=== PATIENT | male | born 1960 ===

== ENCOUNTER → 2018-01-09 | Outpatient (CLI) | payer BC, MEDICARE | LOC: WOUNDCARE 12:25 | PROVIDERS: ATTEND Surgery | DX: L89.321 Pressure ulcer of left buttock, stage 1 (principal); J44.9 Chronic obstructive pulmonary disease, unspecified; T65.222A Toxic effect of tobacco cigarettes, intentional self-harm, initial encounter | CPT/HCPCS: 99203 ==